=== PATIENT | female | born 1945 | race Caucasian/White ===

== ENCOUNTER 2016-10-16 09:12 | Day surgery (SDC) | payer MEDICARE ==
[2016-10-16] VITALS (9 sets, daily range): BP systolic 117–151; BP diastolic 54–75; PULSE 68–103; RESP 11–17; O2SAT 94–100
[~2016-10-16] VITALS: Ht 167.6 cm; Wt 82.3 kg
--- NOTE | 2016-10-16 07:28 | PCM.HPANE ---
Patient Data Surgeon Admitting Provider: Attending Provider:Carroll Hardy DO Primary Care Physician:Christina Vogel PA-C Other Provider:George De Santiago Anesthesia Reason for Visit Digital Nerve Of Left Middle Finger Laceration Ht/WT & BMI Height (Feet): 5 Height (Inches): 6 Weight (Kilograms): 83.73 Body Mass Index 29.00, 29.00 Allergies Coded Allergies: Sulfa (Sulfonamide Antibiotics) (Verified Allergy, Unknown, 10/13/16) Uncoded Allergies: SIMVASTATIN, PRAVASTATIN (Allergy, Unknown, myalgias, 10/13/16) Past Anesthesia History Anesthesia History: Positive for:: Anesthesia Reactions (persistent vomiting), Denies:: Abnormal Airway, Difficult Intubation, Fam Anesthesia Reaction Diabetes History Hx Diabetes?: No MRSA MRSA: No Medications Hypertension Medication: No Home Meds Incl Beta Malia: No Reported Medications Beclomethasone Dipropionate (Qvar)8.7 Gm Aer.w.adap1 Puff INHALATION BID #8.7 GM 10/16/16 Cholecalciferol (Vitamin D3) (Vitamin D3)1,000 Unit Tab.chew1,000 Unit PO DAILY 10/13/16 [vitamin c] No Conflict Check2 Tab DAILY 10/13/16 Albuterol Sulfate (Ventolin HFA Inhaler)200 Puff/18 Gm Inhaler2 Puff INH Q4 PRN For Wheezing #1 INHALER Ref 0 10/13/16 oxyCODONE-Acetaminophen 5-325 mg 1 Each Tablet1-2 Tab PO Q6H PRN For Pain Ref 0 10/13/16 Duloxetine (Cymbalta)60 Mg Capsule.dr60 Mg PO DAILY Ref 0 10/13/16 Ubidecarenone (Co Q-10)10 Mg [id number] Mg PO DAILY 10/13/16 Atorvastatin (Lipitor)20 Mg Bqptai26 Mg PO Q2DAY Ref 0 10/13/16 History History of ENT Problems?: Yes HEENT History: Positive for:: Cataracts (bilateral surgery) Denies:: Abnormal Airway Difficult Intubation Dysphagia Hearing Problem Sinus Problem Denture Type: None Teeth Condition: Within Normal Limits Hx of Heart Problems?: No Cardiovascular History: Denies:: AICD Abdominal Aortic Aneurism Atrial Fibrillation Cardiac Surgery Chest Pain Congestive Heart Failure Edema Heart Murmur Hypertension Irregular Heartbeat Pacemaker Peripheral Vascular Thrombophlebitis Hx of Respiratory Problem?: Yes Respiratory History: Positive for:: Asthma (uses inhaler) COPD Use of Inhalers / NEBS Denies:: Chest Surgery Dyspnea Emphysema Hemoptysis Oxygen Administration Pneumonia (remote hx of, not for years) Tuberculosis Use of C-PAP Machine Hx Neurologic Problems?: No Neurological History: Denies:: CVA Headaches (occasional) Multiple Sclerosis Parkinson's Disease Seizures Hx of GI Problems?: No Gastrointestinal History: Denies:: Cirrhosis Diverticulitis Gall Bladder Disease Gastroesphageal Reflux Gastrointestinal Bleeding Heartburn Hepatitis Hiatal Hernia Liver Disease Rectal Bleeding Hx of Problems?: No Genitourinary History: Denies:: Kidney Stones Urinary Tract Infection Female Hx: Denies:: Currently (post menopausal) Problems with Breasts? (had breast reduction surgery) Skin History: Denies:: History Skin Disorders? Hx Musculoskeletal Problems?: Yes Musculoskeletal History: Positive for:: Back Injury (1984) Fibromyalgia (under "control") Musculoskeletal Trauma (left hand laceration current admission problem-) Denies:: Joint Replacement Hx of Psycho/Social Problems?: Yes Psycho Social History: Positive for:: Hx Depression Denies:: Anxiety Bipolar Disorder Hx Surgeries?: Yes (ovary and ovarian tumor rmoved; breast reduction,umbilical hernia; ) Hx Any Other Health Problems?: Yes Other History: Positive for:: Hospitalization (surgeries) Denies:: Cancer Thyroid Disease History Blood Transfusions: Positive for:: Accept Blood Products? Denies:: Blood Transfusions Hx Diabetes: No Hx Alcohol Use: NoHx Substance Use: Yes (marijuana- topical for fibromyalgia- as needed)Have You Smoked inLast 12 mo: No (quit 30 years ago) Stop/Bang Treated for Sleep Apnea?: No Do You Have a CPAP Machine?: No S-Snoring: Do You Snore Loudly: No T-Tired: feel tired, fatigued: No O-Obsered: Observed not breath: No P-Blood Pressure: treated: No B- Body Mass Index > 35 kg/m2: No A- Age over 50: Yes N- Neck Large Circumference: No G- Gender Male: No BIANKA Total Score: 1 BIANKA Risk Assessment: Low Risk, <3 Yes Risk Assessment Category Category 1A: Patient has history of documented sleep apnea, and HAS NOT received any narcotic, sedative or anesthesia administration during this stay. Category 1B: Patient has history of documented sleep apnea, and HAS received any narcotic , sedative or anesthesia administration during this stay Category 2: Patient has SUSPECTED Obstructive Sleep Apnea, and HAS received any narcotic , sedative or anesthesia administration during this stay. Category 3: Patient has SUSPECTED Obstructive Sleep Apnea and HAS NOT received narcotic, sedative or anesthesia administration during this stay. Category 4: Outpatient in Procedural Areas with known sleep apnea or who screen positive for High Risk via the STOP/BANG questionnaire. Exam Exam General Appearance: Alert, Oriented X3, Cooperative, No Acute Distress HEENT/AIRWAY: MP 2 Lungs: Clear to Auscultation, Normal Air Movement Heart: Exam Unremarkable, Regular Rate/Rhythm, No Murmurs/Rubs/Gallops Plan Impression Patient chart reviewed, patient interviewed and anesthestic plan with risks, benefits, and alternatives discussed, and informed consent obtained. NPO per Anesth. Guidelines: Yes ASA Physical Status: ASA2 Mod Systemic Disease Anesthetic Plan: GA Bene/Risks/Altern/Consents: Yes HP Complete Prior to Induction: Yes Zachary Painting MD Oct 16, 2016 07:28
[~2016-10-16 09:12] MED LIST: ALBU18HF INH; ATOR20TA PO; CHOL10008 PO; DULO60CA42 PO; Dexamethasone 4 mg/mL Inj IVPUSH PRN; EPHEDrine Sulfate 50 mg/mL Inj IVPUSH PRN; HYDROmorphone 1 mg/mL Inj IVPUSH PRN; Lactated Ringer's 500 ML IV PRN; MetoCLOpramide 5 mg/mL 2 mL Inj IVPUSH PRN; OXYC1TAB24 PO; Ondansetron 2 mg/mL 2 mL Inj IVPUSH PRN; Phenylephrine 10,000 mCg/mL Inj IVPUSH PRN; UBID10CA4 PO; fentaNYL-PF 50 mCg/mL 2 mL Inj IVPUSH PRN; vitamin c
[2016-10-16] MEDS ORDERED: Propofol 10,000 mCg/mL 20 mL Inj ONE (09:13)
[2016-10-16] MEDS ORDERED: Ketamine 10 mg/mL 20 mL Inj ONE (09:13)
[2016-10-16] MEDS ORDERED: Remifentanil 1 mg/3 mL Inj ONE (09:13)
[2016-10-16] MEDS ORDERED: Dexamethasone 4 mg/mL Inj ONE (09:13)
[2016-10-16] MEDS ORDERED: Ondansetron 2 mg/mL 2 mL Inj ONE (09:13)
[2016-10-16] MEDS: Lactated Ringer's 1,000 ML IV SCH ×4 (09:27→13:21)
[2016-10-16] MEDS ORDERED: CeFAZolin 2 Gm/50 mL D5W Duplex Bag IV ONE (09:32)
[2016-10-16] MEDS ORDERED: CeFAZolin Inj 2 GM in IV Premix 1 EACH IV SCH (09:40)
[2016-10-16] MEDS ORDERED: HYDROcodone-APAP 7.5-325 mg Tablet PO PRN (09:45)
[2016-10-16] MEDS ORDERED: BECL8.7A6 INHALATION (10:02)
[2016-10-16] MEDS ORDERED: Lidocaine 1%-Epi 1:100,000 20 mL Inj INFILTRATE ONE (12:13)
--- NOTE | 2016-10-16 15:36 | OP ---
[address] [address] OPERATIVE REPORT PATIENT: TAO CRANE : 1945 MR#: [id number] ADMIT: 10/16/2016 JOB ID: [id number] DATE OF SURGERY: 10/16/2016 PREOPERATIVE DIAGNOSIS(ES): Left hand common digital nerve laceration involving the ulnar aspect of the middle finger and the radial aspect of the ring finger. POSTOPERATIVE DIAGNOSIS(ES): Left hand common digital nerve laceration involving the ulnar aspect of the middle finger and the radial aspect of the ring finger. PROCEDURE: Repair of left hand common digital nerve utilizing a conduit. SURGEON: Carroll Hardy D.O. ANESTHESIA: General. HISTORY: The patient is 71-year-old female that presented to me over a month out from lacerating her left palm of her hand utilizing a knife while trying to cut an avocado. She continued to have numbness to the ulnar aspect of the middle finger and the radial aspect of the ring finger without any resolution, thus presented for further evaluation and treatment. She had lack of sensation and with the location of the wound demonstrated evidence for a complete laceration to the common digital nerve to the ulnar aspect of the little finger and the radial aspect of ring finger. I discussed the patient. The risks, benefits, alternatives and indications to proceed with an exploration with likely repair of the nerve utilizing the conduit. She understood the risks include, but not limited to, neurovascular injury, tendon injury, infection, failure of fixation, stiffness, persistent pain, all of which may require further intervention. The patient also understood that the goal for surgery was to at least regain some protective sensation but it may never be perfect. The patient had all questions answered. Consent was signed and placed in the chart. PROCEDURE IN DETAIL: The patient was brought to the operative suite and placed supine on the operating room table. Surgical time-out was performed. Everyone the room was in agreement. After appropriate anesthesia was obtained, a left upper arm tourniquet was applied, and the left upper extremity was prepped and draped in a sterile fashion. Left upper extremity was then exsanguinated and the tourniquet inflated to 250 mmHg. The patient's previous laceration was utilized and extended both distally and proximally in a Juliocesar type fashion. Dissection was carried down to first the ulnar digital nerve to the middle finger. This was traced back to the bifurcation which demonstrated a laceration just proximal to the bifurcation. The radial digital nerve to the ring finger was also found to be intact distally to the bifurcation. The proximal limb had a complete transection of the common digital nerve. The proximal stump was identified after releasing the palmar fascia. The two ends were debrided back until spotting fascicles could be appreciated. Copious irrigation was performed. This left a deficit of just over 1.5. A direct measurement of 5 mm in diameter of the common digital nerve was identified and utilizing an [employer] nerve protector measuring 7 mm x 40 mm, this was cut to size as there was not a nerve connector that was of sufficient length. The proximal stump was first secured to the nerve protector utilizing 8-0 nylon followed by securing the distal stump to the distal aspect of nerve protector. The nerve protector was then closed with additional 8-0 nylon sutures along its length to close the tube to create a connector. Copious irrigation was then performed followed by a closure of the skin with 5-0 nylon simple interrupted fashion. The patient was then placed into a well-padded, well-molded ulnar gutter splint. ESTIMATED BLOOD LOSS: Less than 1 cc. COMPLICATIONS: None. DISPOSITION: The patient tolerated the procedure well. Anesthesia was reversed. The patient was transferred back to recovery. POSTOPERATIVE PLAN: The patient will followup in my office in two weeks. We will remove the patient's sutures and the splint at that time. We will have her start working on range of motion and scar mobilization. She understands that it may be five or six months to see how much of her sensation will return.
--- NOTE | 2016-10-16 15:58 | PCM.ANEP1 ---
Post Anesthesia PACU Phase 1 Assessment Vital Signs Vital Signs Date Time Temp Pulse Resp B/P Pulse Ox O2 Delivery O2 Flow Rate FiO2 10/16/16 13:38 76 16 151/63 94 Room Air 10/16/16 13:22 36 84 16 135/70 99 Room Air 10/16/16 13:20 83 14 117/75 99 Room Air 10/16/16 13:15 36.0 87 11 144/59 100 Nasal Cannula 2 10/16/16 13:10 92 13 146/61 99 Nasal Cannula 2 10/16/16 13:05 97 17 144/62 98 Nasal Cannula 2 10/16/16 13:00 99 17 136/54 98 Nasal Cannula 2 10/16/16 12:58 36.2 103 12 140/59 98 Nasal Cannula 2 10/16/16 09:38 36.1 68 16 129/60 95 Room Air Anesthetic Administered: GA Level of Alertness: Awake, talking Pain: No Nausea or Vomiting: No CV Function & Hydration Stable: Yes Airway Device: natural Oxygen Delivery: Nasal Cannula Lungs: Clear to Auscultation, Normal Air Movement Dermatome Level: Full Sensation PACU Phase 2 Assessment Complications: No Follow up Care: No Patient Instructions Provided: N/A Zachary Painting MD Oct 16, 2016 15:58
== END 2016-10-16 23:59 | disposition home or self-care (01) ==
LOC: SAS 09:12
PROVIDERS: ATTEND Orthopaedic Surgery
PROC: 01U607Z Supplement Radial Nerve with Autologous Tissue Substitute, Open Approach (ICD-10-PCS; principal; 2016-10-16 11:00)
DX: S64.493A Injury of digital nerve of left middle finger, initial encounter (principal); S64.495A Injury of digital nerve of left ring finger, initial encounter; S61.412A Laceration without foreign body of left hand, initial encounter; W26.0XXA Contact with knife, initial encounter; Y93.G3 Activity, cooking and baking; J44.9 Chronic obstructive pulmonary disease, unspecified; M79.7 Fibromyalgia
CPT/HCPCS: 64999; C1763; J0690; J1100; J2405; J7120